=== PATIENT | female | born 1940 | race Caucasian/White ===

== ENCOUNTER 2017-04-01 05:02 | Inpatient (IN) | payer MEDICARE, OTHER ==
--- NOTE | ~2017-04-01 | HP ---
History And Physical [address] [facility] [place]. [address] NAME: KATT BOYLE : 36 STATUS : ADM IN [facility]#: [id number] AGE: 76 ADM/REG DATE : 04/01/17 MR#: [id number] REPORT SERV DATE: 04/01/17 DICTATED BY: TOVA VAZQUEZ DATE: 04/01/17 REPORT STATUS : Draft TRANSCRIBED BY: MODTruman DATE: 04/01/17 DATE OF ADMISSION: 04/01/2017 ORTHOPEDIST: Imtiaz Soto M.D. HISTORY OF PRESENT ILLNESS: This is a 76-year-old female who comes in for left hip pain. The patient recently had a bilateral knee arthroplasty under the care of Dr. Soto on 11/27/2016. She was able to withstand it without any problems, and since then she has been becoming more active, not having pain. She can go up her steep incline of her driveway without any problems. She believes that she can walk more than five blocks without any shortness of breath. She can go up one flight of stairs without any problems. She exercises mainly stretching like yoga type several days a week. Yesterday, while she was doing one of her exercises, she tried to sit on a chair, she was correction in correction out, and she fell on her left side. Since then, she was having some severe pain on the left hip area, but was still able to walk, but not back to normal. She tried conservative managements such as sitting on the tub and then switching that to ice instead of warm water. It helped the pain a bit, but it was not enough. She was not able to sleep well last night. Today, she decided she needs to come to the emergency room. Initial x-ray of the hip and pelvis did not show any fractures; however, the CAT scan shows a left femoral neck fracture. We were then called to admit this patient. REVIEW OF SYSTEMS: The patient denied any fever, chills, sweats, loss of consciousness, open wound, or cough. No near syncopal or syncopal episode. No nausea, vomiting, or diarrhea. No urinary or bowel changes. No new rashes and the rest of the 14-point review of system is negative except as above. PAST MEDICAL HISTORY: Includes hypertension, osteoarthritis, and history of arrhythmia. She had the Achillis tendon repair, cataract surgery, right hip replacement and its revision, and chronic bronchitis. ALLERGIES: SHE HAS NO KNOWN DRUG ALLERGIES. MEDICATIONS: Include tramadol, losartan, hydrochlorothiazide, and amlodipine. FAMILY HISTORY: Mom with rheumatoid arthritis. SOCIAL HISTORY: The patient quit smoking in 1955. Denies alcohol or recreational drug use. Lives with her . PHYSICAL EXAMINATION: GENERAL: The patient is alert and oriented x3, not in cardiopulmonary distress. VITAL SIGNS: Include a blood pressure of 157/52, temperature of 98, pulse rate of 80, respirations 24, and saturating 100% on room air. NECK: She has supple neck. No JVD or carotid bruits. No lymphadenopathy. HEENT: Amonate conjunctivae. Anicteric sclerae. No pharyngeal erythema. History And Physical [address] [address] NAME: KATT BOYLE : 36 STATUS : ADM IN [facility]#: [id number] AGE: 76 ADM/REG DATE : 04/01/17 MR#: [id number] REPORT SERV DATE: 04/01/17 DICTATED BY: TOVA VAZQUEZ DATE: 04/01/17 REPORT STATUS : Draft TRANSCRIBED BY: ISMAEL DATE: 04/01/17 LUNGS: She has clear lungs. No rales, no wheezes. CARDIOVASCULAR: Regular rate and rhythm. No murmurs appreciated. Positive bowel sounds. Soft, nontender. No masses or fair pulses. No edema. BACK: Examination of the right hip is limited because of pain, but I do not see any open wound, gross deformity, or rash. LABORATORY DATA: Reveals a basic metabolic panel, CBC, PT, PTT, urinalysis all within normal limits. IMAGING: Shows chest x-ray showing no acute cardiopulmonary abnormality. Hip x-ray shows lower lumbar spondylosis, prior right neurosurgical changes, no evidence of acute pelvis or left hip abnormality. CAT scan of the hip shows a newly displaced fracture through the base of the femoral neck. ASSESSMENT: 1. Left femoral neck fracture. 2. Hypertension. 3. History of arrhythmia. PLAN: The patient says she is active and denies any cardiopulmonary diseases. She was able to withstand bilateral knee arthroplasty four months ago. The patient will now be admitted and will get an ortho consult, keep n.p.o., and hydrate. The patient will continue her BP medications as well. This has been explained to the patient and she agreed and understood the plan. FAN/ISMAEL Tova Vazquez M.D. / [id number] CC: Jyoti Ryan M.D.
--- NOTE | ~2017-04-01 | DS ---
Discharge Summary [address] [place]. [address] NAME: KATT BOYLE : 36 STATUS : DIS IN PAT#: [id number] AGE: 76 ADM/REG DATE : 04/01/17 MR#: [id number] REPORT SERV DATE: 04/04/17 DICTATED BY: TOVA VAZQUEZ DATE: 04/03/17 REPORT STATUS : Draft TRANSCRIBED BY: MODTruman DATE: 04/03/17 ADMISSION DATE: 04/01/2017 DISCHARGE DATE: 04/03/2017 FINAL DIAGNOSES: 1. Left femoral neck fracture, status post nailing. 2. Hypertension. 3. History of arrhythmia. DIAGNOSTIC EXAMS: Chest x-ray showing no acute cardiopulmonary abnormality. Pelvic x-ray showing lower lumbar spondylosis, prior right hip surgical changes, no evidence of acute pelvis or left hip abnormality. CAT scan of the hip showing newly displaced fracture through the base of the femoral neck. HOSPITAL COURSE: Please refer to the H and P done by myself dated on 04/01/2017. Briefly, this is a 76-year-old female, who comes in for left hip pain. The patient has recently had bilateral knee arthroplasty under the care of Dr. Soto on 11/27/2016 and was doing well until she fell and started having some left hip pain. The patient went to the emergency room and workup revealed a left femoral neck fracture. The patient was then admitted by myself. We got Dr. Soto to consult and he did a left hip intramedullary sebastian fixation with short gamma nail. The patient tolerated the procedure well and participated with PT afterwards. They recommended outpatient physical therapy, and once we get clearance from Ortho, we will be discharging the patient home today. The patient will have an outpatient PT, and she prefers to follow up with Dr. Stoo's office for that, and she will have her INR checked there, if not, she needs to have it checked in a week's time with Dr. Too Delgado which she needs to follow up in a week's time as well. The patient will be on the following medications. Norvasc 2.5 mg at bedtime, Citracal 315 mg plus vitamin D, vitamin B 2000 units a day, iron 300 mg twice a day, Cozaar 100, hydrochlorothiazide 12.5 once a day, multivitamin once a day, fatty acid one capsule a day, Florastor one capsule a day, Coumadin 5 mg a day and then they will be adjusting that, vitamin B12 once a day, artificial tears as needed. This has been explained to the patient in front of the and they agreed and understood the plan. DICTATED BY: Jyoti Ryan/ISMAEL Tova Vazquez M.D. / [id number] Discharge Summary [address] [facility] [place] [address] NAME: KATT BOYLE : 36 STATUS : DIS IN [facility]#: [id number] AGE: 76 ADM/REG DATE : 04/01/17 MR#: [id number] REPORT SERV DATE: 04/04/17 DICTATED BY: TOVA VAZQUEZ DATE: 04/03/17 REPORT STATUS : Draft TRANSCRIBED BY: ISMAEL DATE: 04/03/17 CC: Jyoti Ryan M.D.
--- NOTE | ~2017-04-01 | OP ---
Record Of Operation [facility] [address] [place]. [address] NAME: KATT BOYLE : 36 STATUS : ADM IN PAT#: [id number] AGE: 76 ADM/REG DATE : 04/01/17 MR#: [id number] REPORT SERV DATE: 04/02/17 DICTATED BY: CODY SOTO DATE: 04/01/17 REPORT STATUS : Draft TRANSCRIBED BY: MODL DATE: 04/01/17 DATE OF PROCEDURE: 04/01/2017 PREOPERATIVE DIAGNOSIS: Left nondisplaced intertrochanteric hip fracture. POSTOP DIAGNOSIS: Left nondisplaced intertrochanteric hip fracture.. PROCEDURE PERFORMED: Left hip intramedullary sebastian fixation with short Gamma nail. SURGEON: Cody Soto M.D. [employer]: Shreyas Batista and Don Zendejas. ANESTHESIA: General. PROCEDURE IN DETAIL: The patient was clearly identified. After obtaining informed consent, was brought to the operating room at [facility] where she was induced under general anesthesia, placed carefully on the fracture table. Had her left lower extremity prepped and draped in the usual manner. Image intensification reveals anatomic position and alignment of the fracture. This concluded. After time-out procedure was performed through an approximately inch incision, skin was divided, fascial planes were elevated, starting points identified. Guide pin was placed, proximal reamings performed, and the 125 degree short Gamma nail was initially placed. It was somewhat tight distally, therefore, it was removed. A long-beaded guidewire was placed, reaming was performed to 12.5 mm and the rods uneventfully placed to an appropriate position. With a second incision, a guide pin was placed in the appropriate position of the femoral head reamed, permanent lag screw was then placed, uneventfully followed by distal dynamic screw and the construct at this point looks excellent. Under image intensification which guiding apparatus I removed, copious irrigation was performed, the wounds were closed in layers. Subsequently legs cleansed and dressed. The patient was allowed to awaken and was transferred to the recovery room in stable condition having tolerated the procedure well. ESTIMATED BLOOD LOSS: 100 mL. FLUIDS: 500 mL. TOURNIQUET TIME: None. PATHOLOGY: None. MICROBIOLOGY: None. COMPLICATIONS: None. SPONGE AND NEEDLE COUNTS: Reportedly correct. Record Of Operation [facility] [address] [place]. [address] NAME: KATT BOYLE : 36 STATUS : ADM IN PAT#: [id number] AGE: 76 ADM/REG DATE : 04/01/17 MR#: [id number] REPORT SERV DATE: 04/02/17 DICTATED BY: CODY SOTO DATE: 04/01/17 REPORT STATUS : Draft TRANSCRIBED BY: MODL DATE: 04/01/17 ANTIBIOTICS: Administered appropriately preoperatively and ordered to be discontinued within 23 hours. IMPLANT: Short Gamma nail. VIPUL/ISMAEL Cody Soto M.D. / [id number] CC: Jyoti Ryan M.D.
[2017-04-01 04:28] LABS: BASOPHILS 0.2 %; BASOPHILS ABSOLUTE 0.02 10/3/uL (0.0-0.16); EOSINOPHILS ABSOLUTE 0.28 10/3/uL (0.0-0.53); IMMATURE GRANULOCYTES 0.1 %; IMMATURE GRANULOCYTES ABSOLUTE 0.01 10/3/uL (0.0-0.11); LYMPHOCYTES 16.3 %; LYMPHOCYTES ABSOLUTE 1.51 10/3/uL (0.67-4.30); MEAN CORPUS HGB CONC 34.4 g/dL (32.0-36.0); MEAN CORPUSCULAR HEMOGLOB 28.3 pg (26.0-34.0); MEAN PLATELET VOLUME 9.7 fL (9.2-13.0); MONOCYTES ABSOLUTE 0.83 10/3/uL (0.21-1.20); NEUTROPHILS 71.4 %; NEUTROPHILS ABSOLUTE 6.59 10/3/uL (2.02-8.40); PLATELET COUNT 301 10/3/uL (150-400); RBC DISTRIBUTION WIDTH 14.8 % (12.0-16.0); RED CELL COUNT 4.35 10/6/uL (4.0-5.6)
[2017-04-01 04:30] LABS: ER CBC TAT 0 Hrs 09 Mins; HEMATOCRIT 35.8 % (36.0-48.0); HEMOGLOBIN 12.3 g/dL (12.0-16.0); MANUAL DIFF NO %; MEAN CORPUSCULAR VOLUME 82.3 fL (80-100); WHITE BLOOD CELLS 9.2 10/3/uL (4.5-10.5)
[2017-04-01 04:37] LABS: INTERNATIONAL NORMAL RATI 1.1 UNITS (-); PARTIAL THROMBO TIME 26.1 SEC (22.5-37.2); PROTIME (NOT ORD) 14.3 SEC (12.0-14.5)
[2017-04-01 04:43] LABS: BUN (BLOOD UREA NITROGEN) 14 MG/DL (6-23); CALCIUM, SERUM 8.9 MG/DL (8.5-10.4); CHLORIDE, SERUM 103 MMOL/L (96-112); CO2 (CARBON DIOXIDE) 25 MMOL/L (24-34); CREATININE 0.57 MG/DL (0.55-1.02); GFR AFRICAN AMERICAN 103 ML/MIN (>=60); GFR NON AFRICAN AMERICAN 89 ML/MIN (>=60); GLUCOSE, SERUM 105 MG/DL (60-99); POTASSIUM, SERUM 3.5 MMOL/L (3.5-5.3); SODIUM, SERUM 137 MMOL/L (135-148)
[~2017-04-01 05:02] MED LIST: BEN25 PO; CLARITD24H PO; HYZAAR1 TAB PO; NAP250 PO; NORV25 PO; VITS/HERBS/SUPPLEMEN
[2017-04-01 05:18] LABS: ASCORBIC ACID (UR NOT ORDER) NEG (NEG); BILIRUBIN, URINE NEGATIVE (NEG); ER URINALYSIS TAT 0 Hrs 00 Mins; KETONE, URINE NEGATIVE (NEG); LEUKOCYTE ESTERASE(NOT OR NEG (NEG); NITRITE (URINE) NEG (NEG); WBC (NOT ORDERED) (RFLEX) < 1 (0-5)
[2017-04-01] MEDS ORDERED: NORV25 PO (08:56)
[2017-04-01] MEDS ORDERED: COZ50 PO (08:56)
[2017-04-01] MEDS ORDERED: [UNRECOGNIZED DRUG - OTHER] PO (08:57)
[2017-04-01] MEDS ORDERED: TURMERIC PO (08:58)
[2017-04-01] MEDS ORDERED: FISH-EPA1000 MG PO (08:58)
[2017-04-01] MEDS ORDERED: CITRACAL PO (08:59)
[2017-04-01] MEDS ORDERED: FLORASTOR250 MG PO (08:59)
[2017-04-01] MEDS ORDERED: SUPER K PO (08:59)
[2017-04-01] MEDS ORDERED: [UNRECOGNIZED DRUG - OTHER] PO (08:59)
[2017-04-01] MEDS ORDERED: TEARS PLUS OPH (09:00)
[2017-04-01] MEDS ORDERED: VITAMIN D31000 UNIT PO (09:00)
[2017-04-02 05:50] LABS: BASOPHILS 0 %; EOSINOPHILS 0.1 %; EOSINOPHILS ABSOLUTE 0.01 10/3/uL (0.0-0.53); HEMOGLOBIN 10.1 g/dL (12.0-16.0); IMMATURE GRANULOCYTES 0.3 %; IMMATURE GRANULOCYTES ABSOLUTE 0.03 10/3/uL (0.0-0.11); LYMPHOCYTES 9.4 %; LYMPHOCYTES ABSOLUTE 0.86 10/3/uL (0.67-4.30); MEAN CORPUSCULAR HEMOGLOB 27.9 pg (26.0-34.0); MEAN CORPUSCULAR VOLUME 84.5 fL (80-100); MEAN PLATELET VOLUME 10.2 fL (9.2-13.0); MONOCYTES 5.7 %; MONOCYTES ABSOLUTE 0.52 10/3/uL (0.21-1.20); NEUTROPHILS 84.5 %; NEUTROPHILS ABSOLUTE 7.73 10/3/uL (2.02-8.40); PLATELET COUNT 257 10/3/uL (150-400); RBC DISTRIBUTION WIDTH 15.2 % (12.0-16.0); RED CELL COUNT 3.62 10/6/uL (4.0-5.6); WHITE BLOOD CELLS 9.2 10/3/uL (4.5-10.5)
[2017-04-02 05:52] LABS: HEMATOCRIT 30.6 % (36.0-48.0); MANUAL DIFF NO %
[2017-04-02 06:00] LABS: CHLORIDE, SERUM 106 MMOL/L (96-112); CO2 (CARBON DIOXIDE) 26 MMOL/L (24-34); CREATININE 0.57 MG/DL (0.55-1.02); GFR AFRICAN AMERICAN 103 ML/MIN (>=60); GFR NON AFRICAN AMERICAN 89 ML/MIN (>=60); POTASSIUM, SERUM 4.2 MMOL/L (3.5-5.3); SODIUM, SERUM 139 MMOL/L (135-148)
[2017-04-02 06:03] LABS: BUN (BLOOD UREA NITROGEN) 8 MG/DL (6-23); GLUCOSE, SERUM 127 MG/DL (60-99)
[2017-04-02 06:20] LABS: INTERNATIONAL NORMAL RATI 1.2 UNITS (-); PROTIME (NOT ORD) 14.8 SEC (12.0-14.5)
[2017-04-03 05:44] LABS: INTERNATIONAL NORMAL RATI 1.2 UNITS (-); PROTIME (NOT ORD) 15.4 SEC (12.0-14.5)
[2017-04-03 05:47] LABS: BASOPHILS 0.5 %; BASOPHILS ABSOLUTE 0.04 10/3/uL (0.0-0.16); EOSINOPHILS 5.1 %; EOSINOPHILS ABSOLUTE 0.38 10/3/uL (0.0-0.53); HEMOGLOBIN 9.4 g/dL (12.0-16.0); IMMATURE GRANULOCYTES 0.3 %; IMMATURE GRANULOCYTES ABSOLUTE 0.02 10/3/uL (0.0-0.11); LYMPHOCYTES 17.7 %; LYMPHOCYTES ABSOLUTE 1.33 10/3/uL (0.67-4.30); MANUAL DIFF NO %; MEAN CORPUS HGB CONC 32.4 g/dL (32.0-36.0); MEAN CORPUSCULAR HEMOGLOB 27.9 pg (26.0-34.0); MEAN CORPUSCULAR VOLUME 86.1 fL (80-100); MONOCYTES 8.1 %; MONOCYTES ABSOLUTE 0.61 10/3/uL (0.21-1.20); NEUTROPHILS 68.3 %; NEUTROPHILS ABSOLUTE 5.13 10/3/uL (2.02-8.40); PLATELET COUNT 204 10/3/uL (150-400); RBC DISTRIBUTION WIDTH 15.2 % (12.0-16.0); RED CELL COUNT 3.37 10/6/uL (4.0-5.6); WHITE BLOOD CELLS 7.5 10/3/uL (4.5-10.5)
[2017-04-03] MEDS ORDERED: MULTIPLE VIT PO (09:51)
[2017-04-03] MEDS ORDERED: C5 PO (09:53)
[2017-04-03] MEDS ORDERED: FESO4 PO (09:54)
[2017-04-03] MEDS ORDERED: OXYIR5 MG PO (09:58)
[2017-04-03] MEDS ORDERED: HCTZ12.5 PO (10:00)
== END 2017-04-03 12:00 | disposition home or self-care (01) | DRG 536 ==
LOC: ER 05:02 → 1SO 08:56
PROVIDERS: Internal Medicine; Nurse Practitioner Acute Care; Orthopaedic Surgery
PROC: 0SSB34Z Reposition Left Hip Joint with Internal Fixation Device, Percutaneous Approach (ICD-10-PCS; principal; 2017-04-01 17:45)
DX: S72.142A Displaced intertrochanteric fracture of left femur, initial encounter for closed fracture (principal); I10 Essential (primary) hypertension; M47.816 Spondylosis without myelopathy or radiculopathy, lumbar region; W07.XXXA Fall from chair, initial encounter; Z79.899 Other long term (current) drug therapy; Z87.891 Personal history of nicotine dependence; Z96.641 Presence of right artificial hip joint
CPT/HCPCS: 71010; 73502-LT; 73700-LT; 76000; 80048; 81001; 85025; 85610; 85730; 93005; 96374; 96375; 97110-GP; 97116-GP; 97161-GP; 97165-GO; 99285; A9270-GY; C1713; C1769; G8978-CK-GP; G8979-CH-GP; J0690; J2405; J2710; J3010